=== PATIENT | male | born 1940 | race Caucasian/White ===

== ENCOUNTER → 2017-08-10 | Outpatient (CLI) | payer MEDICARE ==
--- NOTE | 2017-08-10 14:14 | Diagnostic Imaging Report ---
PROCEDURE:CT CHEST WITHOUT CONTRAST COMPARISON:CT chest 07/21/16, CT chest 06/25/15. INDICATIONS:LUNG NODULES, FOLLOW UP EXAM. COPD TECHNIQUE: Axial CT images of the chest were obtained without intravenous contrast. Coronal and sagittal reformations were made available for review. RADIATION DOSE: Total DLP: 607.13 mGy*cm Estimated effective dose: (DLP x 0.014 x size factor) mSv FINDINGS: Lungs: Centrilobular and paraseptal emphysema is re-demonstrated. Chain sutures in the posterior right upper lobe and posterior right lower lobe are stable with associated atelectasis/scar. Chain sutures in the posterior left lower lobe with associated atelectasis are stable. Mild fibrotic changes in the lower lobes are stable. Nodules: Right lower lobe, anterior basal segment (image 89), measures 6 mm and is stable. Right lower lobe, anterior basal segment (image 92) measures 5 mm and is stable. Right lower lobe, lateral basal segment measures 2 mm and appears to be calcified (image 96). This is stable. Left lower lobe (image 88) measures 2 mm and appears to be calcified. Left lower lobe (image 84) is calcified and measures 3 mm. This is stable. Left lower lobe, posterior basal segment (image 108) measures 4 mm and is calcified. This is stable. Pleura:Focal calcification abutting the pleura in the anterior left upper lobe measures 8 x 6 mm and is stable. No soft tissue pleural masses or pleural effusions. Airways: No intraluminal filling defects. Lymph nodes: No enlarged axillary, supraclavicular, lymph nodes. A subcarinal lymph node to the right of midline measures 10 mm and is stable. No enlarged hilar lymph nodes given the lack of intravenous contrast. Heart \T\ Mediastinum:Anterior pericardial effusion measures 9 mm and is stable. Calcifications in the coronary arteries and aorta are stable. No aneurysmal dilatation of the aorta. Main pulmonary artery measures 3.2 cm in diameter. The esophagus is collapsed. Upper abdomen:There is fatty atrophy of the pancreas. A low attenuating lesion in the lateral aspect of segment 6 measures 2 mm and is too small to characterize. This is stable, however. Low attenuating lesion in segment 7 measures 5 mm and is too small to characterize. This is also stable. Visualized portion of the spleen is unremarkable. Left adrenal nodule measures 2.2 cm and -2 Hounsfield units consistent with an adenoma. This is stable. Nodular thickening of the medial and apex of the right adrenal gland is stable with attenuation measuring 3 Hounsfield units suggestive underlying adenomata. Visualized portions of the kidneys are unremarkable. Musculoskeletal:A sclerotic, and nonobstructive lesion in the right sixth rib is stable. There are no new osseous lesions. Cystic lesion in the anterior right shoulder is partially exophytic and measures 2.6 x 2.8 cm. Suggestive of a sebaceous cyst. In 2016, this measured 1.8 x 2.0 cm. CONCLUSION: 1. Stable postoperative changes of the lungs. 2. Stable pulmonary nodules, several of which are calcified. Stable burden of emphysema. Based on the presence of emphysema, annual screening of the chest with low dose CT is recommended. 3. Prominent main pulmonary artery is suggestive of pulmonary artery hypertension. 4. Stable adrenal adenomata. 5. Stable low attenuating hepatic lesions, likely cysts. 6. Enlarging soft tissue mass in the anterior right shoulder. Surgical excision should be considered. Dictated by: Jelly Wong M.D. on 08/10/2017 at 14:17 Electronically approved by: Jelly Wong M.D. on 08/10/2017 at 14:17
== END ==
LOC: CT 12:59
PROVIDERS: ATTEND Internal Medicine Critical Care Medicine
DX: R91.1 Solitary pulmonary nodule (principal)
CPT/HCPCS: 71250

== ENCOUNTER → 2018-08-15 | Outpatient (CLI) | payer MEDICARE ==
--- NOTE | 2018-08-15 10:41 | Diagnostic Imaging Report ---
EXAM: CT Chest without contrast INDICATION: Pulmonary nodule COMPARISON: CT Chest 08/10/2017, TECHNIQUE: Chest was scanned utilizing a multidetector helical scanner from the lung apex through the level of the adrenal glands without administration of IV contrast. Coronal and sagittal reformations were obtained. Routine protocol was performed. Lack of IV contrast limits evaluation of vascular and visceral structures. RADIATION DOSE: Total DLP: 257.1 mGy*cm Dose modulation, iterative reconstruction, and/or weight based adjustment of the mA/kV was utilized to reduce the radiation dose to as low as reasonably achievable. COMPLICATIONS: None FINDINGS: LINES/ TUBES: None. LUNGS AND AIRWAYS: The central airways are patent. There are moderate centrilobular and paraseptal and some changes of lungs. There are chain sutures in the posterior right upper lobe posterior bilateral lower lobes. Mild lower lobe predominant fibrotic changes. A lot of pulmonary nodules are stable. These include a 6 mm partially calcified nodule in the right lower lobe on series 3, image 82 and a 5 mm solid pulmonary nodule in the right lower lobe on image 84. There is 4 mm subpleural right upper lobe nodule, on image 60. Additional bilateral calcified pulmonary nodules are unchanged. No evidence of new or enlarging pulmonary nodule. PLEURA: The pleural spaces are unchanged. Unchanged pleural-based calcified nodule along the left upper lobe measuring up to 8 mm on image 35. HEART AND MEDIASTINUM: The thyroid gland is normal. No mediastinal, hilar or axillary lymphadenopathy. No cardiomegaly. Trace pericardial effusion. Atherosclerotic calcifications in the thoracic aorta and coronary arteries. Mildly enlarged main pulmonary artery, measuring up to 3.2 cm, suggestive of pulmonary arterial hypertension. UPPER ABDOMEN: Limited non-contrast views of the upper abdomen. Punctate subcentimeter right hepatic lobe hypodensities are too small to characterize, but likely represent cysts. Unchanged 2.2 cm left adrenal nodule, consistent with adenoma. BONES: No acute osseous abnormality. No suspicious lytic or blastic lesions. Unchanged carotic lesion in the right lateral sixth rib. SOFT TISSUES: Subcutaneous cyst along the anterior right shoulder, measuring up to 2.6 cm appears unchanged and may represent a sebaceous cyst. IMPRESSION: Stable postoperative changes of the lungs. Unchanged bilateral calcified and noncalcified lung nodules, measuring up to 6 mm. Given emphysematous changes of the lungs, follow-up chest CT may be considered in 12 months. Signed by: Dr. Karla Eason MD on 08/15/2018 10:37 AM
== END ==
LOC: CT 09:45
PROVIDERS: ATTEND Internal Medicine Critical Care Medicine
DX: R91.1 Solitary pulmonary nodule (principal)
CPT/HCPCS: 71250

== ENCOUNTER → 2019-09-22 | Outpatient (CLI) | payer MEDICARE ==
--- NOTE | 2019-09-22 11:13 | Diagnostic Imaging Report ---
EXAM: CT Chest without contrast INDICATION: Pulmonary nodule COMPARISON: Multiple prior chest CTs most recently 08/15/2018 and dating back to 06/25/2015. TECHNIQUE: Chest was scanned utilizing a multidetector helical scanner from the lung apex through the level of the adrenal glands without administration of IV contrast. Coronal and sagittal reformations were obtained. Routine protocol was performed. Lack of IV contrast limits evaluation of vascular and visceral structures. RADIATION DOSE: Total DLP: 266 mGy*cm Dose modulation, iterative reconstruction, and/or weight based adjustment of the mA/kV was utilized to reduce the radiation dose to as low as reasonably achievable. COMPLICATIONS: None FINDINGS: LINES/ TUBES: None. LUNGS AND AIRWAYS: The central airways are patent. Moderate centrilobular and paraseptal emphysema. There are chain sutures in the posterior right upper lobe posterior bilateral lower lobes. Previously visualized bilateral subcentimeter calcified and noncalcified pulmonary nodules appear stable dating back to 2015. PLEURA: No pleural effusion or pneumothorax. HEART AND MEDIASTINUM: The thyroid gland is normal. No cardiomegaly. Trace pericardial effusion. Atherosclerotic calcifications in the thoracic aorta and coronary arteries. UPPER ABDOMEN: No acute findings in the upper abdomen. Low-density left adrenal nodule, likely a myelolipoma. BONES: No acute osseous injury. Mild degenerative changes of the visualized spine. SOFT TISSUES: Subcutaneous cyst along the anterior right shoulder, measuring up to 2.6 cm appears unchanged and may represent a sebaceous cyst. IMPRESSION: Unchanged bilateral pulmonary nodules. Given stability dating back to 2015, these nodules are almost certainly benign and do not require further imaging follow-up. Signed by: rEin Mcgee MD on 09/22/2019 11:10 AM
== END ==
LOC: CT 10:24
PROVIDERS: ATTEND Internal Medicine Critical Care Medicine
DX: R91.1 Solitary pulmonary nodule (principal)
CPT/HCPCS: 71250

== ENCOUNTER → 2020-12-10 | Outpatient (CLI) | payer MEDICARE | LOC: CT 15:29 | PROVIDERS: ATTEND Internal Medicine Critical Care Medicine | DX: R91.1 Solitary pulmonary nodule (principal) | CPT/HCPCS: 71250 ==